=== PATIENT | female | born 1980 | race Caucasian/White ===

== ENCOUNTER 2024-12-29 12:08 | Outpatient (CLI) | payer BC | END 2024-12-29 12:09 | disposition home or self-care (01) | LOC: CSHLAB 12:08 | PROVIDERS: ATTEND Surgery | DX: Z01.818 Encounter for other preprocedural examination (principal); K42.0 Umbilical hernia with obstruction, without gangrene | CPT/HCPCS: 93005; 93010 ==

== ENCOUNTER 2025-02-08 08:07 | Day surgery (SDC) | payer BC ==
[2024-12-29 12:43] VITALS: BMI 28.3
[2025-02-08] MEDS ORDERED: PROPOFOL 40 ML ONE (09:57)
[2025-02-08] MEDS ORDERED: Lidocaine 1% PF 5 ML VIAL ONE (09:58)
[2025-02-08] MEDS ORDERED: Bupivacaine HCl 0.5%/Epinephrine 1:200,000/PF 30 ml Vial ONE (10:17)
[2025-02-08] MEDS ORDERED: CEFAZOLIN 2 GM VIAL ONE (10:39)
[2025-02-08] MEDS ORDERED: Ondansetron PF 4 MG/2 ML Vial ONE (11:30)
[2025-02-08] MEDS ORDERED: Sevoflurane 250 ML INH ANEST BOTTLE ONE (11:34)
[2025-02-08] MEDS ORDERED: HYDROcodone/Acetaminophen 5/325 mg Tablet ONE (12:52)
== END 2025-02-08 13:36 | disposition home or self-care (01) ==
LOC: CSHSDC 08:07
PROVIDERS: ATTEND Surgery
PROC: 0WQF0ZZ Repair Abdominal Wall, Open Approach (ICD-10-PCS; principal; 2025-02-08)
DX: K42.0 Umbilical hernia with obstruction, without gangrene (principal); I10 Essential (primary) hypertension; E66.811 Obesity, class 1; Z68.28 Body mass index [BMI] 28.0-28.9, adult; Z98.51 Tubal ligation status; Z87.59 Personal history of other complications of pregnancy, childbirth and the puerperium; Z87.891 Personal history of nicotine dependence; Z79.899 Other long term (current) drug therapy
CPT/HCPCS: A6258; J1100; J2704; J3010